=== PATIENT | female | born 1990 | race Caucasian/White ===

== ENCOUNTER → 2024-09-06 | Outpatient (REF) | payer OTHER | LOC: M LAB REF 17:06 | PROVIDERS: ATTEND Family Medicine | DX: B37.2 Candidiasis of skin and nail (principal) ==

== ENCOUNTER → 2024-09-26 | Outpatient (CLI) | payer OTHER | LOC: M RAD 12:03 | PROVIDERS: ATTEND Family Medicine | DX: J06.9 Acute upper respiratory infection, unspecified (principal) ==

== ENCOUNTER → 2025-03-20 | Outpatient (CLI) | payer OTHER ==
[2025-03-20 15:07] LABS: BASO % 0.4 % (0.0-1.0); EOS # 0.1 10^3/uL (0.0-0.5); EOS % 0.6 % (0.0-3.0); HEMATOCRIT 45.3 % (36.0-47.0); HEMOGLOBIN 14.5 g/dl (12.0-15.5); LYMPH % 37.1 % (24.0-44.0); MEAN CORPUSCULAR HEMOGLOBIN 28.9 pg (27.0-33.0); MEAN CORPUSCULAR VOLUME 90.4 fl (80.0-96.0); MONO # 0.8 10^3/uL (0.0-0.8); MONO % 7.1 % (2.0-8.0); NEUTROPHILS # 5.9 10^3/uL (1.5-8.5); NEUTROPHILS % 54.4 % (36.0-66.0); PLATELET COUNT, AUTOMATED 412 10^3/uL (150-450); RED BLOOD COUNT 5.01 10^6/uL (4.00-5.40); WHITE BLOOD COUNT 10.8 10^3/uL (4.0-10.0)
[2025-03-20 15:11] LABS: ERYTHROCYTE SEDIMENTATION RATE 12 mm/hr (0-20)
[2025-03-20 15:16] LABS: C REACTIVE PROTEIN QUANTITATIV < 0.50 MG/DL (<1.0)
[2025-03-20 15:17] LABS: ALBUMIN 3.9 G/DL (3.2-5.2); ALKALINE PHOSPHATASE 75 U/L (35-104); ALT/SGPT 26 U/L (7.0-40); AST/SGOT 13 U/L (<34); BILIRUBIN,TOTAL 0.5 MG/DL (0.3-1.2); BLOOD UREA NITROGEN 17 MG/DL (9-23); CALCIUM LEVEL 8.9 MG/DL (8.5-10.1); CARBON DIOXIDE LEVEL 28 MMOL/L (20-31); CHLORIDE LEVEL 102 MMOL/L (98-107); GLOMERULAR FILTRATION RATE > 90.0 (>60); GLUCOSE, FASTING 92 MG/DL (60-100); IRON (FE) 97 UG/DL (50-170); PERCENT SATURATION 32.4 % (13.2-45.0); POTASSIUM SERUM 3.7 MMOL/L (3.5-5.1); SODIUM LEVEL 141 MMOL/L (136-145); TOTAL IRON BINDING CAPACITY 299 UG/DL (250-425); TOTAL PROTEIN 6.9 G/DL (5.7-8.2); VITAMIN B12 LEVEL 846 PG/ML (211-911)
[2025-03-20 15:18] LABS: FREE T4 1.39 NG/DL (0.89-1.76); THYROID STIMULATING HORMONE 4.762 uIU/ML (0.55-4.78); TOTAL 25(OH) VITAMIN D 23.2 NG/ML (20.0-100.0)
[2025-03-20 15:19] LABS: FOLATE 13.8 NG/ML (>5.4)
== END ==
LOC: M PLALAB 13:33
PROVIDERS: ATTEND Family Medicine
DX: R60.0 Localized edema (principal)

== ENCOUNTER → 2025-03-22 | Outpatient (CLI) | payer OTHER | LOC: M PLAIMG 07:01 | PROVIDERS: ATTEND Family Medicine | DX: M25.561 Pain in right knee (principal); R60.0 Localized edema; M71.21 Synovial cyst of popliteal space [Baker], right knee ==

== ENCOUNTER → 2025-06-07 | Outpatient (REF) | payer OTHER ==
[~2025-06-07] MED LIST: IBUP-1114 PO
== END ==
LOC: M LAB REF 17:06
PROVIDERS: ATTEND Family Medicine
DX: R30.0 Dysuria (principal)

== ENCOUNTER → 2025-06-13 | Outpatient (CLI) | payer OTHER | LOC: M RAD 09:23 | PROVIDERS: ATTEND Family Medicine | DX: R30.0 Dysuria (principal); N23 Unspecified renal colic ==

== ENCOUNTER 2025-09-10 19:45 | Emergency (ER) | payer OTHER ==
[~2025-09-10] VITALS: Ht 165.1 cm; Wt 112.0 kg
[2025-09-10] MEDS ORDERED: FLUO-290 (19:57)
[2025-09-10] MEDS ORDERED: SEMA0.252 (19:57)
[2025-09-10 21:25] VITALS: BP 117/74; TEMP 97.8; O2SAT 98
== END 2025-09-10 21:35 | disposition home or self-care (01) ==
LOC: M ED 19:45
DX: B34.8 Other viral infections of unspecified site (principal); R42 Dizziness and giddiness; Z79.1 Long term (current) use of non-steroidal anti-inflammatories (NSAID); Z79.899 Other long term (current) drug therapy; Z88.8 Allergy status to other drugs, medicaments and biological substances